=== PATIENT | female | born 2000 | race Asian ===

== ENCOUNTER 2021-07-18 10:54 | Emergency (ER) | payer OTHER ==
[~2021-07-18] VITALS: Ht 167.6 cm; Wt 59.0 kg
[2021-07-18 12:50] VITALS: BP 127/82
[2021-07-18] MEDS ORDERED: IBUPROFEN 800 MG TAB PO ONE (13:00)
[2021-07-18] MEDS ORDERED: CYCL-837 PO (13:02)
[2021-07-18] MEDS ORDERED: IBUP800T27 PO (13:02)
== END 2021-07-18 13:52 | disposition home or self-care (01) ==
LOC: ER 10:54
DX: S83.92XA Sprain of unspecified site of left knee, initial encounter (principal); S63.611A Unspecified sprain of left index finger, initial encounter; S63.613A Unspecified sprain of left middle finger, initial encounter; S40.812A Abrasion of left upper arm, initial encounter; R51.9 Headache, unspecified; V87.8XXA Person injured in other specified noncollision transport accidents involving motor vehicle (traffic), initial encounter; Y93.55 Activity, bike riding; Y92.488 Other paved roadways as the place of occurrence of the external cause; Y99.8 Other external cause status
CPT/HCPCS: 70450; 73130; 73562